=== PATIENT | female | born 1995 | race Caucasian/White ===

== ENCOUNTER 2016-11-23 20:13 | Emergency (ER) | payer SELFPAY ==
[~2016-11-23] VITALS: Ht 157.5 cm; Wt 82.5 kg
[2016-11-23 22:31] VITALS: BP 123/72
== END 2016-11-23 22:31 | disposition home or self-care (01) ==
LOC: ED 20:13
DX: N39.0 Urinary tract infection, site not specified (principal); R51 Headache; F17.210 Nicotine dependence, cigarettes, uncomplicated; Z88.1 Allergy status to other antibiotic agents

== ENCOUNTER 2018-05-18 05:34 | Emergency (ER) | payer MEDICAID ==
[~2018-05-18] VITALS: Ht 157.5 cm; Wt 78.0 kg
[2018-05-18 05:37] VITALS: BP 118/59; Ht 157.5 cm; Wt 78.0 kg
== END 2018-05-18 06:16 | disposition home or self-care (01) ==
LOC: ED 05:34
DX: H66.91 Otitis media, unspecified, right ear (principal); H60.501 Unspecified acute noninfective otitis externa, right ear; F17.200 Nicotine dependence, unspecified, uncomplicated; Z88.1 Allergy status to other antibiotic agents
CPT/HCPCS: 99406